=== PATIENT | female | born 1995 | race Caucasian/White ===

== ENCOUNTER → 2020-11-22 17:51 | Outpatient (BNVA) | payer BC, SELFPAY | PROVIDERS: Family Provider Family Medicine; PCP Family Medicine; Visit Provider Nurse Practitioner Family | DX: Z20.828 Contact with and (suspected) exposure to other viral communicable diseases (principal); R50.9 Fever, unspecified | CPT/HCPCS: 86710; 87400; 87635 ==

== ENCOUNTER 2022-05-29 23:05 | Emergency (ER) | payer BC, SELFPAY ==
[2022-05-29 23:16] VITALS: BP 141/98; PULSE 91; RESP 16; TEMP 37.2; O2SAT 97; BMI 39.6
--- NOTE | 2022-05-29 23:21 | W.ED.EAR ---
HPI - Ear Problem General: Chief complaint: Ear Stated complaint: ear pain right side Time Seen by Provider: 05/29/22 23:21 History of Present Illness: Patient is a 26-year-old female comes to the ED with right ear pain. Symptoms started around noon today. She says the pain is continued to progress and starts in her right ear and radiates to her right jaw. Patient says she has been swimming a lot over the past couple days and has gotten a lot of water in her right ear. Denies any fevers, nausea/vomiting. Associated symptoms: Reports ear or mastoid pain (Right ear); Denies fever(s), headache(s) or neck pain Review of Systems Const: Denies: fever(s), chills or fatigue Eyes: Denies: change in vision or eye discomfort ENMT: Reports: ear or mastoid pain (Right ear); Denies: throat pain, odynophagia, nasal discharge or nasal congestion Card: Denies: chest pain, palpitations, edema, swelling of feet/ankles, dyspnea on exertion or orthopnea Resp: Denies: dyspnea, productive cough or non-productive cough GI: Denies: abdominal pain, nausea, vomiting, diarrhea, constipation or hematochezia : Denies: flank pain, dysuria or hematuria Musc: Denies: neck pain, back pain or extremity swelling Skin/Breast: Denies: rash or new lesions Neuro: Denies: headache(s), numbness in extremities or weakness in extremities PFS ED PFSH: Medical History (Updated 05/29/22 @ 23:41 by REMA Graham) No pertinent family history Surgical History (Updated 05/29/22 @ 23:41 by REMA Graham) No pertinent past surgical history Social History Smoking and tobacco status: never smoked Alcohol intake: current Alcohol intake frequency: holidays/special occasions only Physical Exam Const: COMMON NORMALS: patient oriented x3, healthy appearing and alert GENERAL APPEARANCE: cooperative and comfortable HENMT: COMMON NORMALS: normocephalic HEAD & SCALP: normocephalic EXTERNAL EAR: Yes external ear abnormal Abnormal external ear present: auricular tenderness (Right ear) EXTERNAL AUDITORY CANAL: Abnormal EAC present EAC laterality: right Details: erythema and EAC tenderness TYMPANIC MEMBRANE: TM normal on the left and TM abnormal TM laterality: right Details: erythematous and fluid behind TM MOUTH: Normal oral and palatal mucosa present THROAT: posterior oropharynx normal and uvula midline Neck/C-Spine: COMMON NORMALS: supple GENERAL: Yes normal visual inspection Resp: COMMON NORMALS: normal respiratory effort, No retractions, No use of accessory muscles and clear to auscultation bilaterally AUSCULTATION: clear to auscultation bilaterally Cardio: COMMON NORMALS: regular rate, regular rhythm, S1 normal heart sound present, S2 normal heart sound present, No gallops present (Cardio), No clicks present (Cardio), No murmurs present (Cardio) and Peripheral pulses 2+ throughout RATE: regular rate RHYTHM: regular rhythm HEART SOUNDS: S1 normal heart sound present and S2 normal heart sound present PERIPHERAL PULSES: Peripheral pulses 2+ throughout GI: COMMON NORMALS: Normal to inspection, nondistended, normoactive bowel sounds present, Soft to palpation, non-tender and no masses PALPATION: Yes Soft to palpation : COMMON NORMALS: Yes no CVA tenderness BLADDER/KIDNEY EXAM: Yes no CVA tenderness Back/Pelvis: COMMON NORMALS: no CVA tenderness Extremity: COMMON NORMALS: normal to inspection Neuro: COMMON NORMALS: patient oriented x3 and moves all extremities SENSORIUM/ORIENTATION: Yes alert Skin: GENERAL SKIN EXAM: dry skin Course Vital Signs: Vital signs: Vital Signs Temperature 99.0 F 05/29/22 23:16 Pulse Rate 91 05/29/22 23:16 Respiratory Rate 16 05/29/22 23:16 Blood Pressure 141/98 05/29/22 23:16 Pulse Oximetry 97 05/29/22 23:16 MDM - Ear Medical Decision Making Patient is a 26-year-old female comes to the ED with right ear pain. Patient says she has been swimming a lot over the past couple days and has gotten water in her right ear. Exam shows signs of otitis externa and otitis media in right ear. She was given a dose of Ciprodex eardrops and amoxicillin here in the ED. Patient was discharged home with a prescription for Ciprodex and amoxicillin told to follow-up with PCP in the next week for reevaluation. Return to ED precautions given. Patient understood and agreed with plan. Discharge Plan Discharge Patient Disposition: Home Clinical Impression: Otitis externa Qualifiers: Otitis externa type: swimmer's ear Chronicity: acute Laterality: left Qualified Code(s): H60.332 - Swimmer's ear, left ear Otitis media Qualifiers: Otitis media type: serous Chronicity: acute Laterality: left Recurrence: non-recurrent Qualified Code(s): H65.02 - Acute serous otitis media, left ear Condition: Stable Prescriptions: New Ciprodex 0.3-0.1 % drops,suspension 4 drp otic (ear) BID 7 Days Qty: 7.5 0RF amoxicillin 500 mg capsule 500 mg PO BID 10 Days Qty: 20 0RF No Action amoxicillin 875 mg tablet 875 mg PO Q12H 10 Days Qty: 20 0RF Discharge Orders: Discharge ED (Routine); Ordered 05/29/22 Ordered By: Stanislaw Jama Referrals: Su Bonds DO [Primary Care Provider] - Discharge Diet: Regular Discharge Activity: Resume usual activity Activity Restrictions/Additional Instructions: Follow-up with medical provider as directed in the next 7 to 10 days for reevaluation. Take medications as prescribed. Return to the ER or your medical provider if condition worsens. Please read and understand discharge instructions. Thank you for choosing [facility] for your healthcare needs today. Please realize this is an emergency room and that we are providing you with a medical screening exam and this may not be complete and all inclusive of all the testing and or work up that you may need to determine your ailment or severity of your illness. It is very important that you follow up as instructed or that you return to the Emergency Department should you have concerns or if your condition changes or worsens in any way. Coding Level of Care Code ED Pulmonary Function Technologist for [place] Exam Comprehensive
[2022-05-29] MEDS: ciprofloxacin-dexameth Otic Susp 7.5 mL Btl 4 DROP EAR-RIGHT (23:49)
[2022-05-29] MEDS: amoxicillin 500 mg Capsule PO (23:49)
[2022-05-29 23:54] VITALS: BP 137/94; PULSE 82; RESP 18; TEMP 36.7; O2SAT 98
== END 2022-05-29 23:55 | disposition home or self-care (01) ==
PROVIDERS: Emergency Provider Physician Assistant; PCP Family Medicine
DX: H60.332 Swimmer's ear, left ear (principal); H65.02 Acute serous otitis media, left ear
CPT/HCPCS: 99283

== ENCOUNTER → 2022-07-10 11:15 | Outpatient (BNVA) | payer BC, SELFPAY | PROVIDERS: PCP Family Medicine; Visit Provider Family Medicine | DX: J02.9 Acute pharyngitis, unspecified (principal); R05.9 Cough, unspecified; J02.0 Streptococcal pharyngitis | CPT/HCPCS: 87880 ==

== ENCOUNTER 2022-08-31 22:51 | Emergency (ER) | payer BC, SELFPAY ==
[2022-08-31 23:13] VITALS: BP 137/91; PULSE 127; RESP 20; TEMP 38.8; O2SAT 98; BMI 34.7
--- NOTE | 2022-08-31 23:52 | W.ED.GENADLT ---
HPI - General Adult General: Chief complaint: Dental/Oral Stated complaint: tonsils out yesterday running fever Time Seen by Provider: 08/31/22 23:27 History of Present Illness: 26-year-old female in today for complaints of fever and throat pain. She reports that she had a tonsillectomy yesterday by Dr. Contreras. She reports that today she started running a fever greater than 102. She has had 1 dose of Percocet containing 325 mg of Tylenol at 7:00 tonight. And her fever is still 101.9. She reports that she is drinking but not well because she is in a lot of pain. She actually will not talk. She nods her head yes and no and mother talks for her and she nods her head in agreement. Associated symptoms: Deny chest pain, dyspnea or palpitations Review of Systems Const: Reports: fever(s), chills and body aches ENMT: Reports: throat pain and other (Status post tonsillectomy yesterday) Card: Denies: chest pain or palpitations Resp: Denies: dyspnea [facility] ED PFSH: Medical History No pertinent family history Surgical History No pertinent past surgical history Social History Smoking and tobacco status: never smoked Alcohol intake: current Alcohol intake frequency: holidays/special occasions only Female Reproductive History: Spontaneous abortions: No Physical Exam Const: COMMON NORMALS: patient oriented x3 and alert HENMT: COMMON NORMALS: TM's normal bilaterally TYMPANIC MEMBRANE: TM's normal bilaterally OTHER: Posterior oropharynx there is thick whitish debris in the posterior oropharynx with dark black debris from recent cautery and surgery. Swelling is noted however the airway appears patent Resp: COMMON NORMALS: normal respiratory effort, No use of accessory muscles and clear to auscultation bilaterally AUSCULTATION: clear to auscultation bilaterally Cardio: COMMON NORMALS: regular rhythm, S1 normal heart sound present and S2 normal heart sound present RATE: tachycardic RHYTHM: regular rhythm HEART SOUNDS: S1 normal heart sound present and S2 normal heart sound present Neuro: COMMON NORMALS: patient oriented x3 SENSORIUM/ORIENTATION: Yes alert Course Vital Signs: Vital signs: Vital Signs Temperature 99.5 F 09/01/22 00:23 Pulse Rate 112 H 09/01/22 00:28 Respiratory Rate 20 H 08/31/22 23:13 Blood Pressure 137/91 08/31/22 23:13 Pulse Oximetry 98 08/31/22 23:13 Oxygen Delivery Me thod 08/31/22 23:13 MDM - General Adult Medical Decision Making Patient is in today for fever and throat pain 1 day status postop tonsillectomy. Patient has only had 325 mg of Tylenol last dose was at 7 PM tonight. Patient is not drinking well related to pain. Provide patient with ice water and here. Give her dose of Tylenol liquid. Explained to her that you can commonly run fever after tonsillectomy for a couple of days however if it is not controlled with Tylenol and Motrin that is the concern. Treat her with 1 dose of hydrocodone/APAP liquid. After Tylenol and hydrocodone heart rate came down to 112, temp is down to 99.5. We will discharge patient. Encouraged her to stay hydrated. Advised not to take Percocet for another 4 to 6 hours after taking the hydrocodone. Advised that she has to stay well-hydrated. Advised to stay on top of her fever so it does not get out of control. Call her surgeon first thing in the morning. Return to ER as needed for any new or worsening symptoms. Discharge Plan Discharge Patient Disposition: Home Clinical Impression: Fever Condition: Stable Prescriptions: No Action amoxicillin 500 mg tablet 500 mg PO BID 7 Days Qty: 14 0RF Discharge Orders: Discharge ED (Routine); Ordered 09/01/22 Ordered By: Sarai Ramos Referrals: Su Bonds DO [Primary Care Provider] - Discharge Diet: As Directed Patient Instructions: Tonsillectomy (DC), Opioid Safety, Pain Management Activity Restrictions/Additional Instructions: Make sure that you are staying hydrated. You received a dose of hydrocodone in here. You do not need any more Percocet for 4 to 6 hours. Make sure that you are taking Tylenol as directed to keep your fever down. Do not bundled up. Keep your house cooler. Call and follow-up with your surgeon first thing in the morning to advise him of your fever. Return to ER for any new or worsening symptoms Coding Level of Care Code ED Communications Coordinator for Chg Fwd Exam Expanded Problem Focused
[2022-08-31] MEDS: acetaminophen 650 mg/20.3 mL UDC PO (23:54)
[2022-09-01] MEDS: HYDROcodone-APAP 7.5-325 mg/15 mL UDC PO (00:13)
[2022-09-01 00:23] VITALS: TEMP 37.5
[2022-09-01 00:28] VITALS: PULSE 112
[2022-09-01 00:42] VITALS: BP 138/84; PULSE 114; RESP 22; TEMP 37.6; O2SAT 98
== END 2022-09-01 00:44 | disposition home or self-care (01) ==
PROVIDERS: Emergency Provider Nurse Practitioner Family; PCP Family Medicine
DX: R50.9 Fever, unspecified (principal)
CPT/HCPCS: 12345; 99283

== ENCOUNTER 2023-12-11 15:34 | Outpatient (CLI) | payer MEDICAID, SELFPAY ==
[2023-12-11] VITALS (17 sets, daily range): BP systolic 132–210; BP diastolic 60–122; PULSE 64–110; RESP 16–18; TEMP 36.7; BMI 41.0
[2023-12-11 16:32] LABS: Basophils % 0.1 %; Eosinophils # 0.1 10^3/uL (0.0-0.8); Eosinophils % 0.6 %; Hematocrit 39.9 % (36-47); Lymphocytes # 1.5 10^3/uL (0.8-4.8); Lymphocytes % 19.2 %; Mean Corpuscular HGB Conc 34.6 g/dL (30-55); Mean Corpuscular Hemoglobin 29.7 pg (27-33); Mean Corpuscular Volume 85.8 fl (85-98); Mean Platelet Volume 11.7 fL (7.4-10.4); Monocytes # 0.5 10^3/uL (0.2-0.9); Monocytes % 5.9 %; Neutrophils # 5.85 10^3/uL (1.8-7.7); Neutrophils % 73.8 %; Nucleated Red Blood Cells % 0 %; Platelet Count 155 10^3/cmm (157-399); Red Blood Count 4.65 10^6/uL (3.85-5.65); Red Cell Distribution Width 13.2 % (12.1-15.1); White Blood Count 7.93 10^3/uL (3.29-11.43)
[2023-12-11] MEDS: hyDRALAzine 20 mg/mL INJ 1 mL 5 MG IVP (16:47)
[2023-12-11 16:50] LABS: Add Urine Microscopic? YES; Bilirubin Urine Neg (Negative); Blood Urine 2+ (Negative); Glucose Urine UA Norm (Normal); Ketones Urine Negative (Negative); Leukocyte Esterase Urine Trace (Negative); Nitrate Urine Negative (Negative); Protein Urine 3+ (Negative); Urine Appearance Cloudy (CLEAR); Urine Color Yellow (Yellow); Urobilinogen Urine Norm (Negative); pH Urine 7 (5-7)
[2023-12-11 16:54] LABS: Add Urine Culture? No; Amorphous Sediment Urine 1+ /hpf; Bacteria Urine 1+ /hpf; Fine Granular Casts Urine 0-4 /lpf; Hyaline Casts Urine 0-4 /lpf; Mucus Urine 2+ /hpf; RBC Urine 0-4 /hpf (0-2); Squamous Epithelial Cell Urine 0-4 /hpf (0-5); Transitional Epi Cells Urine 0-4 /hpf; WBC Urine 0-4 /hpf (0-5)
[2023-12-11 17:02] LABS: Alanine Aminotransferase 42 U/L (0-33); Albumin Level 3.5 g/dL (3.5-5.2); Alkaline Phosphatase 87 U/L (35-105); Anion Gap 13.6 (5-19); Aspartate Amino Transferase 53 U/L (0-32); Blood Urea Nitrogen 10 mg/dL (6-20); C Reactive Protein 3.9 mg/L (0.0-4.9); Calcium 9.4 mg/dL (8.5-10.5); Carbon Dioxide 23 mmol/L (22-29); Chloride 107 mmol/L (98-107); Globulin 2.8 g/dL (1.3-4.6); Glomerular Filtration Rate 120.8 mL/min (90-130); Glucose 73 mg/dL (65-115); Lipase 23 U/L (13-60); Osmolality Calculated 288 mOsm/kg (285-295); Potassium 3.6 mmol/L (3.5-5.1); Sodium 140 mmol/L (136-145); Total Bilirubin 0.4 mg/dL (0.15-1.2); Total Protein 6.3 g/dL (6.6-8.7); Uric Acid 5.3 mg/dL (2.4-5.7)
[2023-12-11 17:03] LABS: Urine Creatinine 270 mg/dL (28-217)
[2023-12-11 17:16] LABS: UPRO/UCREAT Ratio 0.69 mg/mg CR; Urine Protein Random 185 mg/dL
[2023-12-11] MEDS: hyDRALAzine 20 mg/mL INJ 1 mL 10 MG IVP (17:21)
--- NOTE | 2023-12-11 17:38 | P.TS_ITS ---
Transfer Summary Providers Date of Admission: 12/11/2023 Date of Discharge/Transfer: 12/11/23 Attending Provider at Transfer: Stanislaw Atkins MD Primary Care Provider: DO Dr Susy Driscoll - [facility] - [facility] [place] [place] Transfer Plans: Anticipated date of transfer: 12/11/23 . Diagnoses at Discharge Discharge Diagnosis (1) Preeclampsia, severe: Status: Acute (2) Elevated transaminase level: Status: Acute Other Information Additional DC diagnoses/information: 1. Intrauterine at 23.0 weeks gestation 2. Preeclampsia with severe features 3. Elevated transaminases 4. Obesity Reason for Visit Reason for Visit Nausea, vomiting, back pain Brief History: Tessie is a 28-year-old at 23.0 weeks gestation by LMP consistent with 10-week ultrasound. The patient sees Dr. Simon at [facility] in [facility] and presented to [facility] in [facility] due to her symptoms. Her was complicated by morbid obesity, THC use prior to finding out she was , anxiety previously on clonazepam outside of and Prozac. Now with findings concerning for preeclampsia with severe features. 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 She has had nausea off and on for the last few weeks. She woke up around 2 AM on the morning of 12/11/2023 with severe abdominal pain that was epigastric and in the left upper quadrant. The patient rated this as a 6 out of 10 pain. She threw up 1 time prior to arrival at OB triage at [place]. Upon arrival at [facility] and [place] she had a blood pressure of 202/122. Repeat blood pressure was 198/115 with a pulse of 65. Because of this she was given a dose of hydralazine 5 mg IV. The patient had mild improvement of her blood pressure down to 172/81 and her nausea and epigastric pain improved mildly. Blood work was done and showed signs of an elevated ALT and AST of 42 and 53 res pectively. Her urine protein creatinine ratio was 0.69 and her urine dip showed 3+ protein. Upon review of records from [facility], the patient had no protein in her urine during all of her prior appointments and her blood pressures have been running in the 120s to 130s over 70s consistently. Upon review of her blood pressures at our facility prior to her blood pressure is also running in the 115 to 130s systolic consistently. Because of the patient's findings concerning for preeclampsia with severe features and potentially impending HELLP syndrome, it was felt best to proceed with transfer to a higher level of care where a NICU was present if she was able to progress further in the . I spoke with Dr. Musa at [facility] in [facility] and she agreed to accept the patient in transfer. The patient will be started on IV magnesium with a 4 g bolus and 2 g/h. She will be given 1 dose of Celestone 12 mg IM. The patient has also been quite anxious related to this and we will give her a one-time dose of hydroxyzine 25 mg. The patient has not needed any Zofran at this time. If we are able to get an ultrasound of her liver and spleen prior to transfer we will do this if it can be done without delaying the transfer. Currently urine drug screen and one-time troponin levels are pending. Records from the patient's primary OB at [facility] from Dr. Simon will be faxed to the labor and delivery department ahead of the patient and we will send a copy with the patient as well. Records do not show any significant abnormalities other than what was stated here. The patient denies nicotine use, alcohol use, drug use. She has a history of a cholecystectomy, tonsillectomy, wisdom teeth removal. She does not have any known drug allergies. The patient and her significant other are in agreement with transfer at this time. Hospital Course Hospital Course Tessie is a 28 y /o @ 23.0 wks by LMP consistent with ~6 wk US. Preg is c/b obesity, now with HTN with severe features, proteinuria, elevated ALT/AST. Physical Exam Narrative: General: Alert and oriented x3, appears ill. Eyes: Pupils equal round and reactive to light and accommodation Mouth: Mucous membranes moist, pharynx non-erythematous Cardiac: Regular rate and rhythm without murmurs Lungs: Clear to auscultation bilaterally without wheezes, crackles or rhonchi Abdomen: Soft, mild tenderness in the right upper quadrant, moderate to severe tenderness in the epigastrium and left upper quadrant, no rebound tenderness, fundus consistent with gestational age Extremities: Trace edema in the bilateral lower extremities. Brisk reflexes present on the right. Normal reflexes on the left lower extremity. No clonus noted. TS Data Studies Completed and Pending Laboratory Last Values WBC 7.93 10^3/uL (3.29-11.43) 12/11/23 16:10 RBC 4.65 10^6/uL (3.85-5.65) 12/11/23 16:10 Hgb 13.80 g/dL (11.27-16.99) 12/11/23 16:10 Hct 39.9 % (36-47) 12/11/23 16:10 MCV 85.8 fl (85-98) 12/11/23 16:10 MCH 29.7 pg (27-33) 12/11/23 16:10 MCHC 34.6 g/dL (30-55) 12/11/23 16:10 RDW 13.2 % (12.1-15.1) 12/11/23 16:10 Plt Count 155 10^3/cmm (157-399) L 12/11/23 16:10 MPV 11.7 fL (7.4-10.4) H 12/11/23 16:10 Neut % (Auto) 73.8 % 12/11/23 16:10 Lymph % (Auto) 19.2 % 12/11/23 16:10 [place] % (Auto) 5.9 % 12/11/23 16:10 Eos % (Auto) 0.6 % 12/11/23 16:10 Baso % (Auto) 0.1 % 12/11/23 16:10 Neut # (Auto) 5.85 10^3/uL (1.8-7.7) 12/11/23 16:10 Lymph # (Auto) 1.5 10^3/uL (0.8-4.8) 12/11/23 16:10 [place] # (Auto) 0.5 10^3/uL (0.2-0.9) 12/11/23 16:10 Eos # (Auto) 0.1 10^3/uL (0.0-0.8) 12/11/23 16:10 Baso # (Auto) 0.0 10^3/uL (0.0-0.1) 12/11/23 16:10 Nucleated RBC % (auto) 0 % 12/11/23 16:10 Nucleated RBCs # 0.0 /100WBC 12/11/23 16:10 Sodium 140 mmol/L (136-145) 12/11/23 16:10 Potassium 3.6 mmol/L (3.5-5.1) 12/11/23 16:10 Chloride 107 mmol/L (98-107) 12/11/23 16:10 Carbon Dioxide 23 mmol/L (22-29) 12/11/23 16:10 Anion Gap 13.6 (5-19) 12/11/23 16:10 BUN 10 mg/dL (6-20) 12/11/23 16:10 Creatinine 0.6 mg/dL (0.5-0.9) 12/11/23 16:10 GFR Calculation 120.8 mL/min (90-130) 12/11/23 16:10 Glucose 73 mg/dL (65-115) 12/11/23 16:10 Calculated Osmolality 288 mOsm/kg (285-295) 12/11/23 16:10 Uric Acid 5.3 mg/dL (2.4-5.7) 12/11/23 16:10 Calcium 9.4 mg/dL (8.5-10.5) 12/11/23 16:10 Total Bilirubin 0.4 mg/dL (0.15-1.2) 12/11/23 16:10 AST 53 U/L (0-32) H 12/11/23 16:10 ALT 42 U/L (0-33) H 12/11/23 16:10 Alkaline Phosphatase 87 U/L (35-105) 12/11/23 16:10 C-Reactive Protein 3.9 mg/L (0.0-4.9) 12/11/23 16:10 Total Protein 6.3 g/dL (6.6-8.7) L 12/11/23 16:10 Albumin 3.5 g/dL (3.5-5.2) 12/11/23 16:10 Globulin 2.8 g/dL (1.3-4.6) 12/11/23 16:10 Lipase 23 U/L (13-60) 12/11/23 16:10 Urine Color Yellow (Yellow) 12/11/23 16:20 Urine Appearance Cloudy (CLEAR) A 12/11/23 16:20 Urine pH 7 (5-7) 12/11/23 16:20 Ur Specific [place] 1.010 (1.005-1.030) 12/11/23 16:20 Urine Protein 3+ (Negative) H 12/11/23 16:20 Urine Glucose (UA) Norm (Normal) 12/11/23 16:20 Urine Ketones Negative (Negative) 12/11/23 16:20 Urine Blood 2+ (Negative) H 12/11/23 16:20 Urine Nitrate Negative (Negative) 12/11/23 16:20 Urine Bilirubin Neg (Negative) 12/11/23 16:20 Urine Urobilinogen Norm mg/dL (Negative) 12/11/23 16:20 Ur Leukocyte Esterase Trace (Negative) H 12/11/23 16:20 Urine RBC 0-4 /hpf (0-2) H 12/11/23 16:20 Urine WBC 0-4 /hpf (0-5) H 12/11/23 16:20 Ur Squamous Epith Cells 0-4 /hpf (0-5) H 12/11/23 16:20 Ur Transition Epith Cell 0-4 /hpf 12/11/23 16:20 Amorphous Sediment 1+ /hpf 12/11/23 16:20 Urine Bacteria 1+ /hpf (NONE) H 12/11/23 16:20 Hyaline Casts 0-4 /lpf H 12/11/23 16:20 Fine Granular Casts 0-4 /lpf H 12/11/23 16:20 Urine Mucus 2+ /hpf 12/11/23 16:20 U Random Total Protein 185 mg/dL 12/11/23 16:20 Urine Creatinine 270 mg/dL (28-217) H 12/11/23 16:20 Protein/Creatinin Ratio 0.69 mg/mg CR 12/11/23 16:20 Recent Clincial Data Last Vital Signs Pulse 71 12/11/23 17:12 BP 178/90 12/11/23 17:12 Vital Signs Pulse BP 12/11/23 17:12 71 178/90 12/11/23 16:52 69 172/81 12/11/23 16:36 71 210/105 12/11/23 16:16 64 192/96 12/11/23 16:01 69 198/115 12/11/23 15:57 65 202/122 Intake & Output/Weight 12/09/23 12/10/23 12/11/23 12/12/23 06:59 06:59 06:59 06:59 Weight 239 lb Vitals Last Vital Signs Pulse 71 12/11/23 17:12 BP 178/90 12/11/23 17:12 TS Medications Medications Hydralazine HCl (Hydralazine 20 Mg/Ml Inj 1 Ml) 20 mg IVP PRN PRN; Protocol PRN Reason: HYPERTENSION Hydralazine HCl (Hydralazine 20 Mg/Ml Inj 1 Ml) 10 mg IVP PRN PRN; Protocol PRN Reason: HYPERTENSION Last Admin: 12/11/23 17:21 Dose: 10 mg Hydralazine HCl (Hydralazine 20 Mg/Ml Inj 1 Ml) 5 mg IVP PRN PRN; Protocol PRN Reason: HYPERTENSION Last Admin: 12/11/23 16:47 Dose: 5 mg Labetalol HCl (Labetalol 5 Mg/Ml Sdv 20ml) 20 mg IVP PRN PRN; Protocol PRN Reason: HYPERTENSION Labetalol HCl (Labetalol 5 Mg/Ml Sdv 20ml) 40 mg IVP PRN PRN; Protocol PRN Reason: HYPERTENSION Labetalol HCl (Labetalol 5 Mg/Ml Sdv 20ml) 80 mg IVP PRN PRN; Protocol PRN Reason: HYPERTENSION Labetalol HCl (Labetalol 5 Mg/Ml Sdv 20ml) 40 mg IVP PRN PRN; Protocol PRN Reason: HYPERTENSION Allergies cinnamon Allergy (Verified 09/19/23 11:05) ALGY-Anaphylaxis nut - unspecified Allergy (Verified 09/19/23 11:05) ALGY-Anaphylaxis Home Medications fluoxetine 10 mg capsule 10 mg PO DAILY 07/06/23 [History Confirmed 09/19/23] ibuprofen 600 mg tablet 600 mg PO TID PRN pain #15 tabs 07/06/23 [Rx Confirmed 09/19/23] 12/11/23 [History] Discharge Plan Discharge Patient Disposition: Xfer Other Prescriptions: No Action fluoxetine 10 mg capsule 10 mg PO DAILY ibuprofen 600 mg tablet 600 mg PO TID PRN (Reason: pain) Qty: 15 0RF Transfer Attestations Time Spent in Transfer Care: greater than 30 min (60) Quality Metrics Clinical Quality Measures [ No reported AMI, CVA or VTE this stay] Coding Level of Care Code Acute Code for Chg Fwd Diagnoses Preeclampsia, severe O14.10 Elevated transaminase level R74.01
[2023-12-11] MEDS: hyDRALAzine 20 mg/mL INJ 1 mL IVP (17:52)
[2023-12-11] MEDS: labetalol 5 mg/mL SDV 20mL 20 MG IVP (18:20)
[2023-12-11 18:23] LABS: Amphetamines Screen Urine Negative (Negative); Barbiturates Screen Urine Negative (Negative); Benzodiazepines Screen Urine Negative (Negative); Cocaine Screen Urine Negative (Negative); Opiate Screen Urine Negative (Negative); PCP Screen Urine Negative (Negative); THC Screen Urine Positive (Negative)
[2023-12-11] MEDS: magnesium sulfate premix 20 GM/500 ML BAG IV (18:27)
[2023-12-11] MEDS: dextrose 5%-lactated ringers 1,000 ML 75 ML IV (18:27)
[2023-12-11] MEDS: magnesium sulfate premix 4 GM/100 ML PREMIX IV (18:29)
[2023-12-11] MEDS: betamethasone susp 6 mg/mL 1 mL (per mL) 12 MG IM (18:35)
[2023-12-11] MEDS: hyDROXYzine 25 mg Capsule PO (18:36)
[2023-12-11 18:46] LABS: Troponin T (5th) Once 9 ng/L (0-10)
--- NOTE | 2023-12-11 20:07 | PC.NURSE ---
EMS RECIEVED REPORT ON PT AT BEDSIDE FROM Alena SCOTT RN AT THIS TIME.
== END 2023-12-11 20:16 | disposition other institution (70) ==
LOC: OPOB 15:35 → OBGYN 15:40
PROVIDERS: PCP Family Medicine; Visit Provider Family Medicine
DX: O14.10 Severe pre-eclampsia, unspecified trimester (principal); R74.01 Elevation of levels of liver transaminase levels
CPT/HCPCS: 36415; 51702; 59025; 80053; 80306; 81001; 82570; 83690; 84156; 84484; 84550; 85025; 86140; 96372; 96374; 96376; 99211; J0360; J0702; J3475; J3490; J7121